=== PATIENT | female | born 1970 | race African-American/Black ===

== ENCOUNTER 2017-06-10 21:00 | Emergency (ER) | payer BC ==
[2017-06-11 01:42] LABS: ABS Basophils 0.1 10^3/ul (0-0.2); ABS Eosinophils 0.2 10^3/ul (0-0.6); ABS Lymphocytes 2.2 10^3/ul (1.0-4.8); ABS Monocytes 0.4 10^3/ul (0-0.8); ABS Neutrophils 3.1 10^3/ul (1.5-7.7); ABS Nucleated RBC 0 10^3/ul; Eosinophil % 3.7 % (0-6); Hematocrit 36 % (35-47); Hemoglobin 11.7 g/dl (12.0-16.0); Lymphocyte % 35.9 % (25-47); Mean Corpuscular HGB Conc 33 g/dl (31-36); Mean Corpuscular Hemoglobin 25 pg (27-31); Mean Corpuscular Volume 76 fL (80-97); Mean Platelet Volume 7 um3 (7.4-10.4); Nucleated Red Blood Cells % 0.1; Platelet Count 244 10^3/ul (150-450); Red Cell Distribution Width 15 % (10.5-15); White Blood Count 6.1 10^3/ul (3.5-10.8)
[2017-06-11 01:52] LABS: INR 0.96 (0.77-1.02)
[2017-06-11 02:38] LABS: EGFR Non-African American 69.5 (>60)
[2017-06-11 03:07] VITALS: BP 135/84
--- NOTE | 2017-06-11 03:19 | ED ---
Yosef Hernandez Rebecca, scribed for Nellie Marie MD on 06/10/17 at 2359 . Palpitations / Dysrhythmia - HPI Summary HPI Summary: Pt is a 47 y/o F who presents to ED c/o palpitations characterized as fluttering. Sx began earlier today while walking. She also notes intermittent R- sided jaw pain. Per nurse's triage, pt additionally c/o SOB. 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 - History of Current Complaint Chief Complaint: EDDysrhythmPalp Time Seen by Provider: 06/10/17 23:50 Hx Obtained From: Patient Onset/Duration: Still Present Character: Fluttering Alleviating: Nothing Associated Signs & Symptoms: Shortness of Breath - Allergy/Home Medications Allergies/Adverse Reactions: Allergies Allergy/AdvReac Type Severity Reaction Status Date / Time Penicillins Allergy Hives Verified 06/11/17 02:03 Sulfa (Sulfonamide Allergy Hives Verified 06/11/17 02:03 Antibiotics) PMH/Surg Hx/FS Hx/Imm Hx Endocrine/Hematology History: Denies: Hx Diabetes, Hx Thyroid Disease Cardiovascular History: Reports: Hx Hypertension - ON MEDS, Other Cardiovascular Problems/Disorders - ARTHIMYA Denies: Hx Pacemaker/ICD Respiratory History: Reports: Hx Sleep Apnea, Other Respiratory Problems/ Disorders - RECENT PNEUMONIA Denies: Hx Asthma, Hx Chronic Obstructive Pulmonary Disease (COPD) GI History: Reports: Other GI Disorders - OCC RIGHT SIDED ABD PAIN Denies: Hx Ulcer Musculoskeletal History: Reports: Hx Arthritis - BILAT KNEES Sensory History: Reports: Hx Contacts or Glasses - READING GLASSES Denies: Hx Hearing Aid Opthamlomology History: Reports: Hx Contacts or Glasses - READING GLASSES Psychiatric History: Reports: Hx Depression - NO MEDS CURRRENTLY Denies: Hx Panic Disorder - Surgical History Surgery Procedure, Year, and Place: APPENDECTOMY 2009 [place],. rt knee arthoscopcy Hx Anesthesia Reactions: No - Immunization History Date of Influenza Vaccine: 01/2017 Infectious Disease History: No Infectious Disease History: Denies: Hx Clostridium Difficile, Hx Hepatitis, Hx Human Immunodeficiency Virus (HIV), Hx of Known/Suspected MRSA, Hx Shingles, Hx Tuberculosis, Hx Known/ Suspected VRE, Hx Known/Suspected VRSA, History Other Infectious Disease, Traveled Outside the [place] in Last 30 Days - Family History Known Family History: Positive: Hypertension - Social History Alcohol Use: None Substance Use Type: Reports: None Hx Tobacco Use: No Smoking Status (MU): Never Smoked Tobacco Review of Systems Positive: Palpitations Positive: Shortness Of Breath Positive: Other - Intermittent R-sided jaw pain All Other Systems Reviewed And Are Negative: Yes Physical Exam - Summary Physical Exam Summary: VITAL SIGNS: Reviewed. GENERAL: ~Patient is a morbidly obese female who is lying comfortable in the stretcher. Patient is not in any acute respiratory distress. HEAD AND FACE: No signs of trauma. No ecchymosis, hematomas or skull depressions. No sinus tenderness. EYES: PERRLA, EOMI x 2, No injected conjunctiva, no nystagmus. EARS: Hearing grossly intact. Ear canals and tympanic membranes are within normal limits. MOUTH: Oropharynx within normal limits. NECK: Supple, trachea is midline, no adenopathy, no JVD, no carotid bruit, no c- spine tenderness, neck with full ROM. CHEST: Symmetric, no tenderness at palpation LUNGS: Clear to auscultation bilaterally. No wheezing or crackles. CVS: Regular rate and rhythm, S1 and S2 present, no murmurs or gallops appreciated. ABDOMEN: Soft, non-tender. No signs of distention. No rebound no guarding, and no masses palpated. Bowel sounds are normal. EXTREMITIES: FROM in all major joints, no edema, no cyanosis or clubbing. NEURO: Alert and oriented x 3. No acute neurological deficits. Speech is normal and follows commands. SKIN: Dry and warm Triage Information Reviewed: Yes Vital Signs On Initial Exam: Initial Vitals Temp Pulse Resp BP Pulse Ox 98.2 F 100 18 154/108 99 06/10/17 21:04 06/10/17 21:04 06/10/17 21:04 06/10/17 21:04 06/10/17 21:04 Vital Signs Reviewed: Yes Diagnostics - Vital Signs Vital Signs Temp Pulse Resp BP Pulse Ox 06/10/17 23:30 81 18 130/79 99 06/10/17 23:27 85 18 99 06/10/17 23:26 136/88 06/10/17 23:24 84 21 133/81 99 06/10/17 21:04 98.2 F 100 18 154/108 99 - Laboratory Result Diagrams: 06/11/17 01:15 06/11/17 01:15 Lab Statement: Any lab studies that have been ordered have been reviewed, and results considered in the medical decision making process. - Radiology CXR Xray Interpretation: No Acute Changes - No acute process. Radiology Interpretation Completed By: ED Physician - EKG 2115 Cardiac Rate: NL - 89 bpm EKG Rhythm: Sinus Rhythm EKG Interpretation: Normal axis. Normal interval. No ischemic changes. Course/Dx - Course Assessment/Plan: Pt is a 47 y/o F who presents to ED c/o palpitations characterized as fluttering. Sx began earlier today while walking. She also notes intermittent R-sided jaw pain. Per nurse's triage, pt additionally c/o SOB. 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 CXR reveals no acute findings. EKG is sinus rhythm. Troponin of 0.00. Pt will be D/C to home with Dx of palpitations and atypical chest pain. She understands and agrees. Allergies and elevated BP noted. - Diagnoses Provider Diagnoses: Palpitations, Atypical chest pain Discharge - Discharge Plan Condition: Stable Disposition: HOME Patient Education Materials: Chest Pain (ED), Heart Palpitations (ED) Referrals: Mauricio Bentley MD [Primary Care Provider] - 3 Days Additional Instructions: RETURN TO EMERGENCY DEPARTMENT FOR ANY NEW OR WORSENING SYMPTOMS. The documentation as recorded by the Yosef frost Rebecca accurately reflects the service I personally performed and the decisions made by , Nellie Marie MD.
--- NOTE | 2017-06-11 07:39 | RAD ---
INDICATION: Chest pain COMPARISON: February 24, 2016 TECHNIQUE: An AP portable view obtained at 0039 hours is submitted. FINDINGS: Bones/Soft Tissues: There are no acute bony findings. Cardiomediastinal: The cardiomediastinal silhouette is normal. Lungs: There are no infiltrates. Pleura: There is a small right sided effusion. Other: None IMPRESSION: SMALL RIGHT-SIDED EFFUSION, OTHERWISE NEGATIVE.
== END 2017-06-11 03:15 | disposition home or self-care (01) ==
LOC: ED 21:00
DX: R00.2 Palpitations (principal); R07.89 Other chest pain; R68.84 Jaw pain; R06.02 Shortness of breath; J90 Pleural effusion, not elsewhere classified; I10 Essential (primary) hypertension; Z88.0 Allergy status to penicillin; Z88.2 Allergy status to sulfonamides
CPT/HCPCS: 36415; 71045; 80053; 82550; 84484; 85025; 85610; 85730; 93005; 99283

== ENCOUNTER 2018-02-23 10:23 | Emergency (ER) | payer BC ==
--- NOTE | 2018-02-23 11:37 | UC ---
Skin Complaint HPI - HPI Summary HPI Summary: 48 y/o female presents to the urgent care c/o a scar below her belly button swollen and painful to touch since Saturday02/19/2018. Pain is worse today, sharp w/ bending, sitting or getting up, 8/10 associated w/ redness and warm to touch. pt denies Hx of MRSA. Pt denies fever, SOB, chest pain, abdominal pain, N /v/D. She has not taking anything to alleviate symptoms. Only apply warm compresses. - History of Current Complaint Chief Complaint: UCAbdominalPain Time Seen by Provider: 02/23/18 11:28 Stated Complaint: RED PAINFUL BELLY BUTTON Hx Obtained From: Patient Hx Last Menstrual Period: 02/08/18 ?: No Onset/Duration: Gradual Onset, Lasting Days - 5 days, Still Present, Worse Since - yesterday Skin Exposure Onset/Duration: Days Ago - 5 days Timing: Constant Onset Severity: Mild Current Severity: Moderate Pain Intensity: 8 Pain Scale Used: 0-10 Numeric Location: Discrete - below umbilicus w/ swelling lump and redness Character: Pruritus, Pain, Redness, Raised, Painful Aggravating Factor(s): Touch Alleviating Factor(s): Heat Associated Signs & Symptoms: Positive: Rash, Tenderness. Negative: Nausea, Vomiting, Numbness, Fever, Chills, Wheezing - Allergy/Home Medications Allergies/Adverse Reactions: Allergies Allergy/AdvReac Type Severity Reaction Status Date / Time Penicillins Allergy Hives Verified 02/23/18 10:52 Sulfa (Sulfonamide Allergy Hives Verified 02/23/18 10:52 Antibiotics) Home Medications: Home Medications aMILoride/HCTZ 5-50 MG TAB* [Moduretic 5-50 TAB*] 5 - 160 mg PO DAILY 02/23/18 [ History Confirmed 02/23/18] Review of Systems All Other Systems Reviewed And Are Negative: Yes Constitutional: Positive: Negative Skin: Positive: Other - a swollen lump w/ redness and painful at touch Eyes: Positive: Negative ENT: Positive: Negative Respiratory: Positive: Negative Cardiovascular: Positive: Negative Gastrointestinal: Positive: Negative Genitourinary: Positive: Negative Motor: Positive: Negative Neurovascular: Positive: Negative Musculoskeletal: Positive: Negative Neurological: Positive: Negative Psychological: Positive: Negative Is Patient Immunocompromised?: No PMH/Surg Hx/FS Hx/Imm Hx Previously Healthy: Yes Cardiovascular History: Hypertension - Surgical History Surgical History: Yes Surgery Procedure, Year, and Place: APPENDECTOMY 2010 [place],. rt knee arthoscopcy - Family History Known Family History: Positive: Hypertension, Diabetes - Social History Occupation: Employed Full-time Lives: With Family Alcohol Use: None Substance Use Type: None Smoking Status (MU): Never Smoked Tobacco - Immunization History Most Recent Influenza Vaccination: 2014 Most Recent Tetanus Shot: UTD Physical Exam - Summary Physical Exam Summary: Vital Signs Reviewed: Yes General: well developed, well nourished obese female sitting in the examining table w/o any apparent distress Eye Exam: Normal Eyes: Positive: Conjunctiva Clear - PERRLA, EOMI, fundi grossly normal ENT: Positive: Normal ENT inspection, Hearing grossly normal, Pharynx normal, TMs normal Neck: Positive: Supple, Nontender, No Lymphadenopathy Respiratory: Positive: Chest non-tender, Lungs clear, Normal breath sounds, No respiratory distress Cardiovascular: Positive: RRR, No Murmur, Pulses Normal, Brisk Capillary Refill Abdomen Description: Positive: Nontender, No Organomegaly, Soft. Negative: CVA Tenderness (R), CVA Tenderness (L) Bowel Sounds: Positive: Present Musculoskeletal: Positive: Strength Intact, ROM Intact, No Edema Neurological: Positive: Alert, Muscle Tone Normal Psychological Exam: Normal Skin: Positive: below umbilicus w/ a small erythematous pustule that is indurated and fluctuant, tender to palpation, swollen, and warm to touch about 1.5cmx 1.5cm in size. , sensation is intact, capillary refill WNL, reflexes WNL Triage Information Reviewed: Yes Vital Signs: Initial Vital Signs Temp 98 F 02/23/18 10:49 Pulse 85 02/23/18 10:49 Resp 16 02/23/18 10:49 BP 146/94 02/23/18 10:49 Pulse Ox 99 02/23/18 10:49 Course/Dx - Course Course Of Treatment: 48 y/o female presents to the urgent care c/o a scar below her belly button swollen and painful to touch since Saturday02/19/2018. Pain is worse today, sharp w/ bending, sitting or getting up, 8/10 associated w / redness and warm to touch. pt denies Hx of MRSA. Pt denies fever, SOB, chest pain, abdominal pain, N/v/D. She has not taking anything to alleviate symptoms. Only apply warm compresses. Hx obtained. Pt w/ an abscess just belo the umbilicus about 1.5 x 1.5cm in size. I&D of abscess procedure:The procedure was explained and consent obtained. [place] protocol performed. The wound was anesthetized with 4mL of Lido/epi 2% with good anesthesia. Sterile drape and prep were done. The fluctuant center was incised with #11 blade scalpel. A moderate amount of caseous material was expressed . wound cultures obtained and sent to lab top r/o MRSA. The wound was probed for loculated areas and irrigated with normal saline. The wound was packed loosely with wick or left open. Bacitracin topical ointment applied and wound covered with sterile dressing. The patient tolerated the procedure well. Pt allergic PCN and sulfa. Pt Rx Clindamycin PO and Bacitracin PO to alleviate symptoms. Advised to return to the urgent care for wound check up. Pt advised fever develops and pain increase despite ABX to go immediately to the ER for further management. Pt's BP is elevated today advised to decrease salt in diet, monitor BP and f/u with PCP for further management. Pt understood and agreed with D/C instructions. Left the clinic ambulating A&OX3. - Differential Diagnoses - Skin Complaint Differential Diagnoses: Abscess, Cellulitis, MRSA - Diagnoses Provider Diagnoses: 1- Incision and drainage of abscess below umbilicus. 2- Uncontrolled HTN Discharge - Sign-Out/Discharge Documenting (check all that apply): Patient Departure All imaging exams completed and their final reports reviewed: No Studies - Discharge Plan Condition: Stable Disposition: HOME Prescriptions: Bacitracin OINTMENT* 1 applic TOPICAL BID #1 tube Clindamycin Cap(NF) [Clindamycin Cap 300 mg Cap(NF)] 300 mg PO TID #30 cap Patient Education Materials: Abscess (ED), Low-Sodium Diet (ED) Referrals: Mauricio Bentley MD [Primary Care Provider] - 2 Days Additional Instructions: 1-Please take full course of antibiotic to avoid resistance. Keep wound clean and dry with a sterile dressing. Apply bacitracin topical as directed 2- F/u wound check up in 2 days with your PCP or at the urgent care for removal of packing 3-. Take Ibuprofen PO q6-8hrs prn for pain or swelling. 4-If you develop fever or redness despite antibiotic please go to the ER immediately or return to the Urgent care. 5- Wound culture sent to lab, if any abnormal result you will receive a call from us. 6-Your BP is elevated today. please decrease salt in your diet, monitor BP and if it continues to be elevated please f/u with your PCP for further management - Billing Disposition and Condition Condition: STABLE Disposition: Home
[2018-02-23] MEDS ORDERED: Lidocaine 2% W/EPI 1:100,000* 20 ML MDV INJ ONE (11:57)
[2018-02-23 12:51] VITALS: BP 148/94
--- NOTE | 2018-02-24 18:51 | UC ---
- Progress Note Progress Note: 02/24/2018 Wound culture negative MRSA, negative S.Aureus Pending sensitivity culture No change Johnna Lopez PA-C Discharge - Sign-Out/Discharge Documenting (check all that apply): Patient Departure - D/C home All imaging exams completed and their final reports reviewed: No Studies - Discharge Plan Condition: Stable Disposition: HOME Prescriptions: Bacitracin OINTMENT* 1 applic TOPICAL BID #1 tube Clindamycin Cap(NF) [Clindamycin Cap 300 mg Cap(NF)] 300 mg PO TID #30 cap Patient Education Materials: Abscess (ED), Low-Sodium Diet (ED) Referrals: Mauricio Bentley MD [Primary Care Provider] - 2 Days Additional Instructions: 1-Please take full course of antibiotic to avoid resistance. Keep wound clean and dry with a sterile dressing. Apply bacitracin topical as directed 2- F/u wound check up in 2 days with your PCP or at the urgent care for removal of packing 3-. Take Ibuprofen PO q6-8hrs prn for pain or swelling. 4-If you develop fever or redness despite antibiotic please go to the ER immediately or return to the Urgent care. 5- Wound culture sent to lab, if any abnormal result you will receive a call from us. 6-Your BP is elevated today. please decrease salt in your diet, monitor BP and if it continues to be elevated please f/u with your PCP for further management - Billing Disposition and Condition Condition: STABLE Disposition: Home
== END 2018-02-23 13:01 | disposition home or self-care (01) ==
LOC: UCEAST 10:23
DX: L02.211 Cutaneous abscess of abdominal wall (principal); I10 Essential (primary) hypertension; Z88.0 Allergy status to penicillin; Z88.2 Allergy status to sulfonamides
CPT/HCPCS: 10060; 87070; 87205; 87640; 87641; 99212; G0463

== ENCOUNTER 2018-11-21 16:30 | Emergency (ER) | payer BC ==
[2018-11-21] MEDS ORDERED: Ondansetron INJ* 2 MG/ML VIAL IV ONE (17:25)
[2018-11-21] MEDS ORDERED: NS 0.9% 1000 ML** 1,000 ML IV ONE (17:25)
--- NOTE | 2018-11-21 17:25 | ED ---
Abdominal Pain/Female - HPI Summary HPI Summary: A 48 y/o female presents to [facility] with a chief complaint of LUQ abdominal pain that has been radiating to her back for the past three days. At triage she rated her pain as a 3/10 in severity. She denies any urinary symptoms or CP. She denies any recent falls or Hx of diverticulitis. - History of Current Complaint Chief Complaint: EDAbdPain Stated Complaint: LEFT SIDE ABD PAIN PER PT Time Seen by Provider: 11/21/18 16:55 Hx Obtained From: Patient Hx Last Menstrual Period: 02/08/18 Onset/Duration: Sudden Onset, Lasting Days, Still Present Timing: Constant Severity Initially: Mild Severity Currently: Mild Pain Intensity: 3 Pain Scale Used: 0-10 Numeric Location: Discrete At: LUQ Radiates: Yes Radiates to: Back Character: Other: - unable to describe Aggravating Factor(s): Nothing Alleviating Factor(s): Nothing Associated Signs and Symptoms: Positive: Back Pain. Negative: Chest Pain, Urinary Symptoms Allergies/Adverse Reactions: Allergies Allergy/AdvReac Type Severity Reaction Status Date / Time Penicillins Allergy Hives Verified 07/23/18 13:29 Sulfa (Sulfonamide Allergy Hives Verified 07/23/18 13:29 Antibiotics) PMH/Surg Hx/FS Hx/Imm Hx Endocrine/Hematology History: Denies: Hx Diabetes, Hx Thyroid Disease Cardiovascular History: Reports: Hx Hypertension - ON MEDS, Other Cardiovascular Problems/Disorders - ARTHIMYA Denies: Hx Pacemaker/ICD Respiratory History: Reports: Hx Sleep Apnea, Other Respiratory Problems/ Disorders - RECENT PNEUMONIA Denies: Hx Asthma, Hx Chronic Obstructive Pulmonary Disease (COPD) GI History: Reports: Other GI Disorders - OCC RIGHT SIDED ABD PAIN Denies: Hx Ulcer History: Denies: Hx Renal Disease Musculoskeletal History: Reports: Hx Arthritis - BILAT KNEES Sensory History: Reports: Hx Contacts or Glasses - READING GLASSES Denies: Hx Hearing Aid Opthamlomology History: Reports: Hx Contacts or Glasses - READING GLASSES Psychiatric History: Reports: Hx Depression - NO MEDS CURRRENTLY Denies: Hx Panic Disorder - Cancer History Hx Chemotherapy: No Hx Radiation Therapy: No - Surgical History Surgery Procedure, Year, and Place: APPENDECTOMY 2009 [place],. rt knee arthoscopcy Hx Anesthesia Reactions: No - Immunization History Date of Influenza Vaccine: 01/2017 Infectious Disease History: No Infectious Disease History: Denies: Hx Clostridium Difficile, Hx Hepatitis, Hx Human Immunodeficiency Virus (HIV), Hx of Known/Suspected MRSA, Hx Shingles, Hx Tuberculosis, Hx Known/ Suspected VRE, Hx Known/Suspected VRSA, History Other Infectious Disease, Traveled Outside the [place] in Last 30 Days - Family History Known Family History: Positive: Hypertension, Diabetes - Social History Alcohol Use: None Substance Use Type: Reports: None Hx Tobacco Use: No Smoking Status (MU): Never Smoked Tobacco Review of Systems Negative: Fever Negative: Chest Pain Positive: Abdominal Pain Positive: no symptoms reported Positive: Myalgia - back pain radiating from abdomen All Other Systems Reviewed And Are Negative: Yes Physical Exam - Summary Physical Exam Summary: GENERAL: Patient is a well-developed and nourished F who is lying comfortable in the stretcher. Patient is not in any acute respiratory distress. HEAD AND FACE: Normocephalic EYES: PERRLA, EOMI x 2. EARS: Hearing grossly intact. MOUTH: Oropharynx within normal limits. NECK: Supple, trachea is midline, no adenopathy, no JVD, no carotid bruit. CHEST: Symmetric, no tenderness at palpation LUNGS: Clear to auscultation bilaterally. No wheezing or crackles. CVS: Regular rate and rhythm, S1 and S2 present, no murmurs or gallops appreciated. ABDOMEN: Soft, TTP LUQ, no rebound or guarding . Bowel sounds are normal. No abnormal abdominal pulsations. EXTREMITIES: Full ROM in all major joints, no edema, no cyanosis or clubbing. NEURO: Alert and oriented x 3. No acute neurological deficits. Speech is normal and follows commands. SKIN: Dry and warm Triage Information Reviewed: Yes Vital Signs On Initial Exam: Initial Vitals Temp Pulse Resp BP Pulse Ox 97.4 F 84 18 158/104 97 11/21/18 16:38 11/21/18 16:38 11/21/18 16:38 11/21/18 16:38 11/21/18 16:38 Vital Signs Reviewed: Yes Diagnostics - Vital Signs Vital Signs Temp Pulse Resp BP Pulse Ox 11/21/18 16:38 97.4 F 84 18 158/104 97 - Laboratory Result Diagrams: 11/21/18 17:22 11/21/18 17:22 Lab Statement: Any lab studies that have been ordered have been reviewed, and results considered in the medical decision making process. - EKG 17:35 Cardiac Rate: NL - 76 bpm EKG Rhythm: Sinus Rhythm Summary of EKG Findings: EKG at 17:35 revealed NSR at 76 bpm, normal axis. Abdominal Pain Fem Course/Dx - Course Course Of Treatment: A 48 y/o female presents to [facility] with a chief complaint of LUQ abdominal pain that has been radiating to her back for the past three days. The physical exam revealed TTP LUQ, no rebound or guarding. EKG at 17:35 revealed NSR at 76 bpm, normal axis. In the ED course the patient was given Zofran IV, Toradol IV and Sodium Chloride IV. Blood work and chemistries obtained and are WNL. The patient will be signed out from Dr. Nicole to Dr. Marie upon shift change at 19:00 11/21/[address] abdomen/pelvis. - Diagnoses Provider Diagnoses: LUQ abdominal pain Discharge - Sign-Out/Discharge Documenting (check all that apply): Sign-Out Patient Signing out patient TO: Nellie Marie - pending CT abdomen/pelvis Patient Received Moderate/Deep Sedation with Procedure: No - Discharge Plan Condition: Stable Disposition: HOME Patient Education Materials: Abdominal Pain (ED) Referrals: Mauricio Bentley MD [Primary Care Provider] - Additional Instructions: Return to ED with any new or worsening symptoms. - Billing Disposition and Condition Condition: STABLE Disposition: Home - Attestation Statements Document Initiated by Mihcaelibe: Yes Documenting Scribe: James Merlos Provider For Whom Michaelibrenetta is Documenting (Include Credential): Ning Nicole MD Scribe Attestation: James Hernandez scribed for Ning Nicole MD on 11/22/18 at 1206. Scribe Documentation Reviewed: Yes Provider Attestation: The documentation as recorded by the James frost accurately reflects the service I personally performed and the decisions made by me, Kat Nicole MD Status of Scribe Document: Viewed
[2018-11-21 17:36] LABS: ABS Basophils 0.1 10^3/ul (0-0.2); ABS Eosinophils 0.1 10^3/ul (0-0.6); ABS Lymphocytes 2.1 10^3/ul (1.0-4.8); ABS Monocytes 0.4 10^3/ul (0-0.8); ABS Neutrophils 3.6 10^3/ul (1.5-7.7); Eosinophil % 2.2 %; Hematocrit 33 % (35-47); Hemoglobin 10.5 g/dL (12.0-16.0); Lymphocyte % 33.2 %; Mean Corpuscular HGB Conc 32 g/dL (31-36); Mean Corpuscular Hemoglobin 22 pg (27-31); Mean Corpuscular Volume 69 fL (80-97); Mean Platelet Volume 7.1 fL (7.4-10.4); Nucleated Red Blood Cells % 0.2; Platelet Count 329 10^3/uL (150-450); Red Blood Count 4.83 10^6 /uL (3.70-4.87); Red Cell Distribution Width 17 % (10-15); White Blood Count 6.3 10^3/uL (3.5-10.8)
[2018-11-21 17:44] LABS: INR 1.08 (0.82-1.09)
[2018-11-21 17:54] LABS: Albumin 4.2 g/dL (3.2-5.2); Albumin/Globulin Ratio 1.3 (1-3); BUN/Creatinine Ratio 11.8 (8-20); C Reactive Protein 4.85 mg/L (<8.01); Calcium 9.4 mg/dL (8.6-10.3); EGFR African American 97.9 (>60); EGFR Non-African American 80.9 (>60); Globulin 3.2 g/dL (2-4); Magnesium 1.9 mg/dL (1.9-2.7); Potassium 3.9 mmol/L (3.5-5.0); Total Bilirubin 0.6 mg/dL (0.2-1.0); Total Protein 7.4 g/dL (6.4-8.9)
[2018-11-21] MEDS: Ketorolac INJ* 30 MG/ML 1 ML VIAL IV PUSH ONE ×2 (18:41→18:42)
[2018-11-21] MEDS ORDERED: Iohexol 300* (CONTRAST) 10 ML SDV IV ONE (19:25)
--- NOTE | 2018-11-21 20:50 | ED ---
Progress - Progress Note Progress Note: Receiving sign out from Dr. Nicole at shift change [address] Abd/Pel. CT Abdomen Pelvis revealed no acute intra-abdominal pathology. ED Provider has reviewed this report. A plan for discharge was discussed with the patient and she was agreeable with this plan. Course/Dx - Course Course Of Treatment: Receiving sign out from Dr. Nicole at shift change [address] Abd/Pel. CT Abdomen Pelvis revealed no acute intra-abdominal pathology. ED Provider has reviewed this report. A plan for discharge was discussed with the patient and she was agreeable with this plan. - Diagnoses Provider Diagnoses: LUQ abdominal pain Discharge - Sign-Out/Discharge Documenting (check all that apply): Patient Departure - Discharge, Receiving Sign-Out Receiving patient FROM: Ning Nicole - At shift change [address] Abd/ Pel Patient Received Moderate/Deep Sedation with Procedure: No - Discharge Plan Condition: Stable Disposition: HOME Patient Education Materials: Abdominal Pain (ED) Referrals: Mauricio Bentley MD [Primary Care Provider] - Additional Instructions: Return to ED with any new or worsening symptoms. - Billing Disposition and Condition Condition: STABLE Disposition: Home - Attestation Statements Document Initiated by Michaelibrenetta: Yes Documenting Scribe: Anderson Whitaker Provider For Whom Ryan is Documenting (Include Credential): Nellie Marie MD Scribe Attestation: Anderson Hernandez scribed for Nellie Marie MD on 11/22/18 at 0623. Scribe Documentation Reviewed: Yes Provider Attestation: The documentation as recorded by the Anderson frost accurately reflects the service I personally performed and the decisions made by Jackelyn lubin MD Status of Scribe Document: Viewed
[2018-11-21 21:04] VITALS: BP 133/91
== END 2018-11-21 20:53 | disposition home or self-care (01) ==
LOC: ED 16:30
DX: R10.12 Left upper quadrant pain (principal); Z88.0 Allergy status to penicillin; Z88.2 Allergy status to sulfonamides; I10 Essential (primary) hypertension; Z79.899 Other long term (current) drug therapy
CPT/HCPCS: 36415; 74177; 80053; 82150; 83605; 83690; 83735; 84484; 85025; 85060; 85610; 86140; 93005; 96361; 96374; 96375; 99283; J1885; J2405; Q9967

== ENCOUNTER 2019-02-24 09:34 | Emergency (ER) | payer BC, OTHER ==
[2019-02-24 09:56] VITALS: BP 160/86
[2019-02-24] MEDS ORDERED: Albuterol/Ipratropium NEB.SOL* Albuterol 2.5 MG/Ipratropium 0.5 MG 3 ML INH ONE (10:15)
--- NOTE | 2019-02-24 10:18 | UC ---
Respiratory Complaint HPI - HPI Summary HPI Summary: 49 yo female presents with cough. She tells me that 1 week ago she developed a mild sore throat. The next day began having a dry cough. Since that time her cough has worsened. She reports a fever for the last 3 days with intermittent episodes of shortness of breath. She has been taking OTC cold medication with little relief. She does not smoke. Denies hx of asthma. Mentions that she had PNA last year and this feels similar. Denies chest pain, abdominal pain, n/v/d. - History of Current Complaint Chief Complaint: UCGeneralIllness Stated Complaint: CHEST CONGESTION Time Seen by Provider: 02/24/19 10:04 Hx Obtained From: Patient Hx Last Menstrual Period: 01/24/19 Onset/Duration: Gradual Onset Severity Initially: Mild Severity Currently: Moderate Pain Intensity: 5 Pain Scale Used: 0-10 Numeric - Allergies/Home Medications Allergies/Adverse Reactions: Allergies Allergy/AdvReac Type Severity Reaction Status Date / Time Penicillins Allergy Hives Verified 02/24/19 09:36 Sulfa (Sulfonamide Allergy Hives Verified 02/24/19 09:36 Antibiotics) PMH/Surg Hx/FS Hx/Imm Hx Cardiovascular History: Hypertension GI/ History: Gastroesophageal Reflux - Surgical History Surgical History: Yes Surgery Procedure, Year, and Place: APPENDECTOMY 2009 [place],. rt knee arthoscopcy - Family History Known Family History: Positive: Hypertension, Diabetes - Social History Alcohol Use: None Substance Use Type: None Smoking Status (MU): Never Smoked Tobacco - Immunization History Most Recent Influenza Vaccination: 2014 Most Recent Tetanus Shot: UTD Review of Systems All Other Systems Reviewed And Are Negative: No Constitutional: Positive: Fever Skin: Positive: Negative Eyes: Positive: Negative ENT: Positive: Sore Throat Respiratory: Positive: Cough Cardiovascular: Positive: Negative Gastrointestinal: Positive: Negative Neurological: Positive: Negative Psychological: Positive: Negative Physical Exam - Summary Physical Exam Summary: GENERAL: Mildly ill appearing. SKIN: No rashes, sores, lesions, or open wounds. HEENT: Head: AT/NC Eyes: Conjunctiva clear without inflammation or discharge. Ears: Hearing grossly normal. TMs intact, no bulging, erythema, or edema. Nose: Nasal mucosa pink and moist. NTTP maxillary and frontal sinus. Throat: Posterior oropharynx without exudates, erythema, or tonsillar enlargement. Uvula midline. NECK: Supple. Nontender. No lymphadenopathy. CHEST: Mild wheezing throughout. No r/r. No accessory muscle use. Breathing comfortably and in no distress. CV: RRR. Pulses intact. Cap refill <2seconds NEURO: Alert. PSYCH: Age appropriate behavior. Triage Information Reviewed: Yes Vital Signs: Initial Vital Signs Temp 99 F 02/24/19 09:52 Pulse 110 02/24/19 09:52 Resp 20 02/24/19 09:52 BP 160/86 02/24/19 09:52 Pulse Ox 100 02/24/19 09:52 Vital Signs Reviewed: Yes Diagnostics - Radiology CXR Radiology Interpretation Completed By: Radiologist Summary of Radiographic Findings: IMPRESSION: #. Limited exam due to obese body habitus with suggestion of potential patchy alveolar consolidation at the RIGHT lower lung zone which may represent pneumonia or atelectasis. Respiratory Course/Dx - Course Course Of Treatment: In the clinic pt was given a duoneb treatment with great relief. No more SOB. Lung sounds improved. She feels easier to take a deep breath. CXR reviewed with pt. She was given an albuterol nebulizer treatment and had further improvement of her breathing. Will rx for azithromycin, prednisone, albuterol, and cough medication at this time. - Differential Dx/Diagnosis Provider Diagnosis: Pneumonia Discharge ED - Sign-Out/Discharge Documenting (check all that apply): Patient Departure All imaging exams completed and their final reports reviewed: Yes - Discharge Plan Condition: Stable Disposition: HOME Prescriptions: Albuterol HFA INHALER* [Ventolin HFA Inhaler*] 1 puff INH Q6H PRN #1 mdi PRN Reason: Sob/Wheezing Azithromycin TAB* [Zithromax TAB (Z-BOB) 250 mg #6 tabs] 2 tab PO .TODAY, THEN 1 DAILY #1 bob Benzonatate CAP* [Tessalon 100 MG CAP*] 100 mg PO TID PRN #21 cap PRN Reason: Cough predniSONE TAB* [Deltasone 20 MG TAB*] 40 mg PO DAILY #10 tab Patient Education Materials: Bacterial Pneumonia (ED) Forms: *Work Release Referrals: Mauricio Bentley MD [Primary Care Provider] - Additional Instructions: If you develop a fever, shortness of breath, chest pain, new or worsening symptoms - please call your PCP or go to the ED immediately. Your blood pressure was high at todays visit. Please see your primary provider within 4 weeks for recheck and re-evaluation. - Billing Disposition and Condition Condition: STABLE Disposition: Home
[2019-02-24] MEDS ORDERED: Albuterol 2.5 MG/3 ML NEB.SOL* (0.083%) INH ONE (11:14)
== END 2019-02-24 11:49 | disposition home or self-care (01) ==
LOC: UCEAST 09:34
DX: J18.9 Pneumonia, unspecified organism (principal); I10 Essential (primary) hypertension; J02.9 Acute pharyngitis, unspecified; Z88.0 Allergy status to penicillin; Z88.2 Allergy status to sulfonamides
CPT/HCPCS: 71046; 99213; A9270-GY; G0463

== ENCOUNTER 2019-07-30 16:17 | Emergency (ER) | payer BC, OTHER ==
--- NOTE | 2019-07-30 16:33 | UC ---
Skin Complaint HPI - HPI Summary HPI Summary: 49 yo female presents with umbilical lesion. 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 Last time was about 2 years ago when she had a small tear in the skin she developed an abscess that needed to be drained. Today she tells me that 4 days ago she was scrubbing the area "too vigorously" and the next day woke up with some mild swelling to the area. Since that time has developed increased swelling, pain, redness, and a yellow pocket of fluid. Has been applying a warm compress. Denies fever, chills, n/v/d/c. No known hx of MRSA. - History of Current Complaint Time Seen by Provider: 07/30/19 16:33 Stated Complaint: SKIN COMPLAINT Hx Obtained From: Patient Hx Last Menstrual Period: 01/24/19 Onset/Duration: Gradual Onset Onset Severity: Mild Current Severity: Moderate Pain Intensity: 7 Pain Scale Used: 0-10 Numeric - Allergy/Home Medications Allergies/Adverse Reactions: Allergies Allergy/AdvReac Type Severity Reaction Status Date / Time ibuprofen Allergy Severe Stomach Verified 07/30/19 16:50 Cramps omeprazole Allergy Severe Palpitation Verified 07/30/19 16:50 s Penicillins Allergy Hives Verified 07/30/19 16:50 Sulfa (Sulfonamide Allergy Hives Verified 07/30/19 16:50 Antibiotics) Home Medications: Home Medications Amlodipine Besylate/Valsartan [Amlodipine Besylate/Valsa 5-160 mg-] 1 tab PO DAILY 03/04/18 [History Confirmed 07/30/19] Loratadine [Claritin 10 MG CAP] 10 mg PO DAILY 07/15/18 [History Confirmed 07/29] Albuterol HFA INHALER* [Ventolin HFA Inhaler*] 1 puff INH Q6H PRN #1 mdi [Rx Confirmed 07/30/19] clindamycin HCL [Clindamycin HCl] 300 mg PO TID #21 capsule 07/30/19 [Rx] PMH/Surg Hx/FS Hx/Imm Hx Cardiovascular History: Hypertension Respiratory History: Asthma - Surgical History Surgical History: Yes Surgery Procedure, Year, and Place: APPENDECTOMY 2009 [place],. rt knee arthoscopy - Family History Known Family History: Positive: Hypertension, Diabetes - Social History Lives: With Family Alcohol Use: None Substance Use Type: None Smoking Status (MU): Never Smoked Tobacco - Immunization History Most Recent Influenza Vaccination: 2014 Most Recent Tetanus Shot: UTD Review of Systems All Other Systems Reviewed And Are Negative: No Constitutional: Positive: Negative Skin: Positive: Other - Abscess Respiratory: Positive: Negative Cardiovascular: Positive: Negative Gastrointestinal: Positive: Negative Neurological/Mental Status: Positive: Negative Psychological: Positive: Negative Physical Exam - Summary Physical Exam Summary: GENERAL: NAD. WDWN. No pain distress. SKIN: Umbilicus: inferior aspect with 2.0cm keloid with 1.5cm area of fluctuant yellow appearing taut skin/abscess. Faint erythema and induration surrounding area 0.5cm. Moderately TTP. Remainder of abdomen NTTP. CHEST: No accessory muscle use. Breathing comfortably and in no distress. CV: Pulses intact. Cap refill <2seconds ABD: Bowel sounds present. NEURO: Alert. PSYCH: Age appropriate behavior. Triage Information Reviewed: Yes Vital Signs: Vital Signs: Temp Pulse Resp BP Pulse Ox 99.0 F 106 17 139/94 97 07/30/19 16:48 07/30/19 16:48 07/30/19 16:48 07/30/19 16:48 07/30/19 16:48 Vital Signs Reviewed: Yes Procedures - Incision and Drainage Midline Abdomen Site: Umbilical Anesthesia: Topical, Local Instrument(s): Scalpel - #11 Packing: Other - None Course/Dx - Course Course Of Treatment: Suspect abscess to umbilicus. The procedure was explained to the pt and all questions were answered. A time out was performed, witnessed, and signed. EMLA cream was applied to the area. The area was then cleansed with an alcohol pad. 2mL of 2% lidocaine without epi was administered and good anesthetization was achieved. The abscess was lanced with a #11 blade and copious yellow purulent matter was expressed. A culture was obtained. Homeostasis achieved. The wound was bandaged with a foam dressing. Pt tolerated procedure well. Will place her on clindamycin and have her change the dressing daily. - Diagnoses Provider Diagnosis: Abscess, umbilical Discharge ED - Sign-Out/Discharge Documenting (check all that apply): Patient Departure All imaging exams completed and their final reports reviewed: No Studies - Discharge Plan Condition: Stable Disposition: HOME Prescriptions: clindamycin HCL [Clindamycin HCl] 300 mg PO TID #21 capsule Patient Education Materials: Abscess (ED) Referrals: Mauricio Bentley MD [Primary Care Provider] - Additional Instructions: If you develop a fever, shortness of breath, chest pain, new or worsening symptoms - please call your PCP or go to the ED immediately. Change the bandage daily until well healed - Billing Disposition and Condition Condition: STABLE Disposition: Home - Attestation Statements Provider Attestation: I was available for consult. This patient was seen by the [facility]. The patient was not presented to, seen by, or examined by me. -Thierry
[2019-07-30 16:49] VITALS: BP 139/94
[2019-07-30] MEDS ORDERED: Lidocaine 2.5%/Prilocain 2.5%* 5 GM TUBE TOPICAL ONE (16:53)
[2019-07-30] MEDS ORDERED: Lidocaine 2% PF * 5 ML VIAL INJ ONE (16:54)
--- NOTE | 2019-08-03 15:58 | UC ---
- Progress Note Progress Note: Wound cx from 07/30/19 staphylococcus lugdenensis. Reviewed sensitivities, includes Clindamycin. No antibiotic modification recommended. Course/Dx - Diagnoses Provider Diagnoses: Abscess, umbilical Discharge ED - Sign-Out/Discharge Documenting (check all that apply): Post-Discharge Follow Up All imaging exams completed and their final reports reviewed: No Studies - Discharge Plan Condition: Stable Disposition: HOME Prescriptions: clindamycin HCL [Clindamycin HCl] 300 mg PO TID #21 capsule Patient Education Materials: Abscess (ED) Referrals: Mauricio Bentley MD [Primary Care Provider] - Additional Instructions: If you develop a fever, shortness of breath, chest pain, new or worsening symptoms - please call your PCP or go to the ED immediately. Change the bandage daily until well healed - Billing Disposition and Condition Condition: STABLE Disposition: Home
== END 2019-07-30 17:45 | disposition home or self-care (01) ==
LOC: UCEAST 16:17
DX: L02.216 Cutaneous abscess of umbilicus (principal); Z88.6 Allergy status to analgesic agent; Z88.0 Allergy status to penicillin; Z88.2 Allergy status to sulfonamides; Z88.8 Allergy status to other drugs, medicaments and biological substances; I10 Essential (primary) hypertension; J45.909 Unspecified asthma, uncomplicated; Z79.899 Other long term (current) drug therapy
CPT/HCPCS: 87070; 87077; 87186; 87205; 87640; 87641; 99212; A9270-GY; G0463